=== PATIENT | male | born 1990 | race Caucasian/White ===

== ENCOUNTER 2021-12-03 00:33 | Day surgery (SDC) | payer OTHER, SELFPAY ==
[2021-11-23 12:06] VITALS: BMI 25.9
--- NOTE | 2021-12-02 13:48 | P.PNAN_ITS ---
Anes - Initial Pre Proc Eval Procedure: Operation Date: 12/03/21 10:30 Proposed Procedures p Screening Colonoscopy - Lazaro Dean MD Date/Time: 12/02/21 13:48 Surgeon: Lazaro Dean MD Pre Op Diagnosis: family hx of colon polyps Patient Data Age: 31 Gender: M Height: 1.83 m Weight: 87 kg Allergies Allergy/AdvReac Type Severity Reaction Status Date / Time No Known Allergies Allergy Verified 12/03/21 09:48 Home Medications Medication Instructions Recorded Confirmed Type No Home Medications 11/23/21 12/03/21 History Patient hx anesthesia problems: none Family hx anesthesia problems: none Results Review: All pre-operative results and documents have been reviewed as part of the pre-operative evaluation. [facility] Past Medical History Medical History (Updated 12/02/21 @ 13:48 by Cosmo Maharaj DO) Anemia Social History Social History Alcohol intake: current Drinks per week: 2 Living arrangements: with family Spiritual care concerns: No Anes - Eval Final PreProcedure Day of Procedure 12/02/21 13:48 Patient weight: overweight Heart: regular rate and rhythm Lungs: clear to auscultation and normal air movement Airway: Mallampati scale class II Neurological: alert and oriented Last oral intake: >/= 8 hours ASA classification: II Emergent: no Anesthetic plan: proceed Anesthesia type and monitoring: general GIVS and standard monitoring Results Review: All pre-operative results and documents have been reviewed as part of the pre-operative evaluation. Informed Consent: The patient's anesthetic plan and its attendant risks and benefits were discussed with the patient/family/POA. Questions were solicited and answers provided to the satisfaction of the patient/family/POA.
[2021-12-03 09:43] VITALS: BP 132/77; PULSE 75; RESP 18; TEMP 36.8; O2SAT 100; BMI 25.9
[2021-12-03] MEDS: LACTATED RINGERS 1,000 ML 150 ML IV CONT (09:58)
--- NOTE | 2021-12-03 10:07 | WPDGICN ---
Assessment and Plan Assessment and plan (1) Family history of colonic polyps: Code(s): Z83.71 - Family history of colonic polyps Status: Acute Assessment and Plan: Patient has a family history that his mother had colon polyps at young age. Plan is for screening colonoscopy at this time. Further recommendations will be given after endoscopy. GI Consult Note Consult date/time: 12/03/21 10:07 HPI: Harman Mcmillan is a 31 year old male Presents for screening colonoscopy. Patient reports his current weight appetite bowel movements are normal. He denies abdominal pain. Family history is significant his mother had colon polyps at a young age. Patient was advised to seek screening as he approached the ages mother was when she had colon polyps. Patient states his current weight appetite bowel movements are normal. No other family members reported to have colon problems or polyps. Review of Systems Review of Systems: All systems reviewed & are unremarkable except as noted in HPI and below PMFSH Past Medical History Medical History (Updated 12/03/21 @ 10:08 by Lazaro Dean MD) Anemia Social History Social History Alcohol intake: current Drinks per week: 2 Living arrangements: with family Spiritual care concerns: No Meds Home Medications and Allergies Home Medications Medication Instructions Recorded Confirmed Type No Home Medications 11/23/21 12/03/21 History Allergies Allergy/AdvReac Type Severity Reaction Status Date / Time No Known Allergies Allergy Verified 12/03/21 09:48 Vital Signs Vital Signs - 24 hr 12/03/21 09:43 Temperature 98.2 F Pulse Rate 75 Respiratory Rate 18 Blood Pressure 132/77 Pulse Oximetry 100 Exam Narrative: Physical exam reveals patient to be alert. Vital signs stable. HEENT exam is unremarkable. Patient is anicteric. Lungs are clear to auscultation and percussion. Heart is without murmur or extra sounds. Abdominal exam bowel sounds are present soft nontender with no organomegaly. Digital external rectal exam is normal.
[2021-12-03 11:03] VITALS: BP 104/56; PULSE 64; RESP 16; O2SAT 98
[2021-12-03 11:13] VITALS: BP 99/64; PULSE 64; RESP 15; O2SAT 100
[2021-12-03 11:23] VITALS: BP 104/65; PULSE 60; RESP 21; O2SAT 100
== END 2021-12-03 11:31 | disposition home or self-care (01) ==
PROVIDERS: PCP Student in an Organized Health Care Education/Training Program; Visit Provider Internal Medicine Gastroenterology
PROC: 0DJD8ZZ Inspection of Lower Intestinal Tract, Via Natural or Artificial Opening Endoscopic (ICD-10-PCS; CPT 45378; principal; 2021-12-03 10:30)
DX: Z12.11 Encounter for screening for malignant neoplasm of colon (principal); Z83.71 Family history of colonic polyps; K64.8 Other hemorrhoids; D64.9 Anemia, unspecified
CPT/HCPCS: 45378; J2704; J7120